=== PATIENT | female | born 1945 | race Caucasian/White ===

== ENCOUNTER → 2019-03-16 | Outpatient (CLI) | payer OTHER ==
[~2019-03-16] MED LIST: BACTRIM DS TAB1 EACH; LEVAQUIN 500 M500 MG PO; LOSARTAN/HCTZ
== END ==
LOC: M.RAD 11:20
DX: M85.88 Other specified disorders of bone density and structure, other site (principal); E55.9 Vitamin D deficiency, unspecified; Z78.0 Asymptomatic menopausal state

== ENCOUNTER → 2019-06-19 | Outpatient (CLI) | payer MEDICARE ==
--- NOTE | ~2019-06-19 | PF ---
[address] [address] PULMONARY FUNCTION REPORT Name: MAYE SANDOVAL Rk Room: [facility]#: [id number] Admission: 06/19/19 Attend Phys: Chrissy Diaz MD Discharge: Date of : 45 Report #: [id number] THIS REPORT FOR: //name// CC: Chrissy Diaz DATA: Forced vital capacity is 2.54, 86% predicted. FEV1 is 1.73, 77% predicted. FEV1/FVC ratio is 68. Post-bronchodilator value of forced vital capacity is 2.82, yielding 11% improvement. Post-bronchodilator value of FEV1 is 1.73, yielding 0% improvement. Total lung capacity is 6.34, 24% predicted. Diffusion capacity is 14.8, 63% predicted. IMPRESSION: Mild airflow limitation with no significant bronchodilator effect. Normal lung volume. Mildly diminished diffusion capacity, although not corrected with hemoglobin. By: [id number] Barragan MD /nt
== END ==
LOC: M.PUL 11:00
DX: J84.10 Pulmonary fibrosis, unspecified (principal)

== ENCOUNTER → 2021-02-18 | Outpatient (CLI) | payer OTHER | LOC: M.RAD 14:30 | PROVIDERS: ATTEND Internal Medicine | DX: Z13.820 Encounter for screening for osteoporosis (principal); M81.0 Age-related osteoporosis without current pathological fracture ==